=== PATIENT | female | born 1940 | race Caucasian/White ===

== ENCOUNTER → 2016-11-14 | Outpatient (CLI) | payer MEDICARE, OTHER ==
[~2016-11-14] MED LIST: AGGR20025 PO; AMLO5 PO; ASPI81TA82 PO; ATAC32TA PO; CEFU1TAB43 PO; DILT60TA PO; EZET10 PO; FURO1TAB93 PO; Hydrocodone/Acetaminophen PO; LUMI0.01 EACH EYE; MULT400T PO; POTA-243 PO; SYNT175T PO; TYLE500T PO; VITA100L SUCK-ON; Z.0.WALKERFRONT
[2016-11-14 10:56] LABS: BLOOD GAS BASE EXCESS 3.5 mmol/L (-2-2); BLOOD GAS CARBOXYHEMOGLOBIN 1.6 % (0-4); BLOOD GAS HCO3 27 mmol/L (22-26); BLOOD GAS METHEMOGLOBIN 1.2 % (0-2); BLOOD GAS O2 HGB SATURATION 93 % (90-100); BLOOD GAS OXYGEN CONTENT 15.8 Vol % (12.0-20.0); BLOOD GAS PCO2 41 mmHg (38-42); BLOOD GAS PO2 79 mmHg (61-120); TEMP CORR TO 98.6
[2016-11-14 10:57] LABS: CRITICAL VALUE NO; DRAW SITE RT RADIAL; FIO2 21 %; NUMBER OF ARTERIAL PUNCTURES 1; STAT NO; ULNAR PULSE PRESENT
--- NOTE | 2016-11-19 09:42 | RSPPFT ---
DATE OF PROCEDURE: 11/14/16 COMMENTS: Spirometry with FVC of 2.1 predicted 2.7, FEV1 of 1.5 predicted 1.9, FEV1/FVC ratio 69% predicted 80%. RV is increased to 3.0 predicted 2.4 implying air trapping. DLCO is 77% of predicted. IMPRESSION: On the basis of the above, patient has an obstructive lung defect with air trapping. There is no response to acutely inhaled bronchodilator except at the level of the "small airways".
== END ==
LOC: HRSP 09:40
PROVIDERS: ATTEND Internal Medicine Pulmonary Disease
DX: R06.02 Shortness of breath (principal)
CPT/HCPCS: 36600; 82805; 94060; 94620; 94726; 94729

== ENCOUNTER → 2017-05-22 | Outpatient (CLI) | payer MEDICARE, OTHER ==
[~2017-05-22] MED LIST changes: +AMLO5TAB2 PO; +CAND32TA10 PO; +FURO1TAB62 PO; +MAPA500T13 PO; +METO25TA3 PO; +POTA10TA2 PO; +XARE20TA PO
[2017-05-22 11:45] LABS: BILIRUBIN, URINE NEG (NEG); BLOOD, URINE NEG (NEG); GLUCOSE,URINE NEG (NEG); KETONE, URINE NEG (NEG); MUCUS URINE FEW /lpf (OCC); NITRITE,URINE NEG (NEG); SQUAMOUS EPITHELIAL CELL URINE <1 /hpf (0-5); URINE COLOR YELLOW (YELLW/STRAW); URINE LEUKOCYTE ESTERASE NEG (NEG)
--- NOTE | 2017-05-22 11:49 | RADRPT ---
EXAM DATE/TIME: 05/22/2017 11:18 [facility] COMPARISON: CHEST PA & LAT, September 28, 2015, 11:27. INDICATIONS : Evaluate for pneumonia, pneumothorax and communicable diseases. Pre-op hip surgery MEDICAL HISTORY : Cardiovascular disease. Stroke. SURGICAL HISTORY : CABG. Appendectomy. ENCOUNTER: Initial ACUITY: 1 day PAIN SCORE: 0/10 LOCATION: chest FINDINGS: PA and lateral views of the chest demonstrate the lungs to be symmetrically aerated without evidence of mass, infiltrate or effusion. The cardiomediastinal contours are unremarkable. Osseous structure s are intact. CONCLUSION: Normal examination. 4 intact sternal wires. Asif Odom MD on May 22, 2017 at 11:47 Board Certified Radiologist. This report was verified electronically.
[2017-05-22 11:50] LABS: AUTOMATED NEUTROPHIL # 3.8 TH/MM3 (1.8-7.7); BASOPHIL # 0.1 TH/MM3 (0-0.2); BASOPHIL % 0.9 % (0.0-2.0); EOSINOPHIL # 0.3 TH/MM3 (0-0.4); EOSINOPHIL % 5.4 % (0.0-4.0); MEAN CELL VOLUME 88.7 FL (80.0-100.0); MEAN CORPUSCULAR HEMOGLOBIN 29.5 PG (27.0-34.0); MEAN CORPUSCULAR HGB CONC 33.3 % (32.0-36.0); MEAN PLATELET VOLUME 9.9 FL (7.0-11.0); MONO % 6.6 % (0.0-8.0); MONOCYTE # 0.4 TH/MM3 (0-0.9); NEUT % 69.1 % (16.0-70.0); PLATELET COUNT 210 TH/MM3 (150-450); RED CELL DISTRIBUTION WIDTH 14.8 % (11.6-17.2); WHITE BLOOD COUNT 5.6 TH/MM3 (4.0-11.0)
[2017-05-22 12:10] LABS: BICARBONATE 30.7 MEQ/L (21.0-32.0); CALCIUM 8.6 MG/DL (8.5-10.1); CREATININE 0.58 MG/DL (0.50-1.00)
[2017-05-22 12:11] LABS: INTERNATIONAL NORMALIZED RATIO 1.1 RATIO; PROTHROMBIN TIME - PATIENT 11.6 SEC (9.8-11.6)
== END ==
LOC: CPRE 10:02
PROVIDERS: ATTEND Orthopaedic Surgery
DX: Z01.812 Encounter for preprocedural laboratory examination (principal); Z01.811 Encounter for preprocedural respiratory examination; M16.11 Unilateral primary osteoarthritis, right hip; Z79.01 Long term (current) use of anticoagulants
CPT/HCPCS: 36415; 71046; 80048; 81001; 85025; 85610

== ENCOUNTER 2017-06-04 05:21 | Inpatient (IN) | payer MEDICARE, OTHER ==
--- NOTE | 2017-05-26 13:05 | MH ---
cc: SAMANTHAVELMADELIA CODYAN DATE OF ADMISSION: 06/04/2017 ADMISSION DIAGNOSIS Osteoarthritis of the right hip, pain right hip. HISTORY OF PRESENT ILLNESS The patient is a 76-year-old white female who has experienced at least a 2-year history of pain involving her right hip area. She had been admitted to the hospital in May of 2015 for history of osteoarthritis of her left hip and at that time underwent a left total hip arthroplasty which was completed in an uncomplicated manner. The patient tolerated her operative procedure well and her postoperative course was unremarkable thereafter. She had noted similar discomfort about the right hip at that time but initially found it to be tolerable. Unfortunately, with the passage of time her symptoms became more pronounced and in February of this past year she returned to the office for further disposition. Her x-ray studies did reveal obvious degenerative changes with narrowing of the joint space and hypertrophic reaction about the inferior margin of the femoral head. Findings and treatment options were reviewed with the patient at that time. She elected to undergo a fluoroscopic injection of her right hip which did afford her several weeks of significant pain relief until her symptoms gradually began to recur. She had been taking Tylenol for pain management and was having ongoing difficulty with regards to her daily routine as related to weightbearing activities. Findings and treatment options were reviewed with the patient, the pros and cons of continuing with conservative management versus operative intervention that would involve total hip arthroplasty were outlined. Emphasis was made regarding the fact that the decision to proceed with surgery would be left entirely to the patient's discretion. She considered her options in this regard and returned to the office more recently indicating that her symptoms had progressed to a point in time where she was ready to proceed with surgery as previously discussed. In compliance with her wishes she has currently been scheduled for admission in order that the above be accomplished. PAST MEDICAL HISTORY/HOSPITALIZATIONS/SURGERIES In addition to her left total hip arthroplasty have included: 1. Bilateral total knee arthroplasties. 2. 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 3. Abdominal hysterectomy. 4. Bilateral cataract excision. 5. Complete thyroidectomy. 6. Appendectomy. 7. Medical management for a GI bleed. 8. More recently she was admitted for stroke evaluation with a electrophysiologic study and subsequently 9. Underwent cardiac ablation for history of atrial fibrillation. MEDICAL ILLNESSES 1. Hypertension. 2. Hypothyroidism. 3. Elevated cholesterol. 4. Glaucoma. MEDICATIONS Current medications: 1. Candesartan 32 mg daily. 2. Metoprolol 25 mg daily. 3. Amlodipine 5 mg daily. 4. Synthroid 0.175 mg daily. 5. Xarelto 20 mg daily. 6. Zetia 10 mg at bedtime. 7. Lasix 20 mg daily. 8. Potassium chloride 10 mEq daily. 9. Lumigan eyedrops 1 drop to each eye at bedtime. 10. She takes Tylenol on a p.r.n. basis. ALLERGIES The patient indicates a drug allergy to DEMEROL AND TRAMADOL WHICH HAVE BEEN ASSOCIATED WITH NAUSEA AND VOMITING. NORVASC APPARENTLY HAS CAUSED SHORTNESS OF BREATH. REVIEW OF SYSTEMS She does wear glasses. No headache, seizure or syncope. No sinus congestion or epistaxis. Auditory acuity intact. No tinnitus. No bleeding gums or dysphagia. Complete upper and partial lower dentures. No cough, shortness of breath, upper respiratory infection, pneumonia or tuberculosis. No angina. She is medically managed for hypertension and is status post cardiac ablation for atrial fibrillation. Appetite is good. Bowel movement is regular. No hepatitis, gallbladder disease, ulcers or hemorrhoids. No urinary tract infection. No kidney stones. She has had a fracture of the right foot and right humerus treated nonoperatively. No psychiatric illness. Remaining review of systems is unremarkable and noncontributory. FAMILY HISTORY The patient has been a for at least 34 years, having at 57 years of age with a history of cirrhosis. One daughter noted to be in good health. Family history is positive for hypertension, diabetes, congestive heart failure, bladder and colon cancer and stroke. SOCIAL HISTORY The patient completed 2 years of college education. 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 Denies active use of tobacco for almost 27 years, having been less than a one-pack per day smoker for 20 years in the past. Ethanol consumption socially. PHYSICAL EXAMINATION Height 5 feet 6 inches, weight 237 pounds. GENERAL: An alert, oriented and responsive 76-year-old white female who sits quietly upon the examination table with no apparent distress. HEENT: Pupils are equally round and reactive to light. Extraocular movements full. Sclerae clear. External nares clear. External auditory canals clear. Edentulous in maxillary distribution. Semi edentulous in the mandibular distribution. Mucous membranes pink and moist. Pharynx clear. NECK: Supple. Active range of motion without associated pain. Carotid pulse palpable bilaterally. Trachea midline. Thyroid without enlargement. LUNGS: Clear to auscultation and percussion. No CVA tenderness. No discomfort throughout the dorsal lumbar spine. HEART: Regular rhythm. No murmur or gallop. ABDOMEN: Abdomen is soft, nontender. Bowel sounds present. PELVIC: Per primary care physician. EXTREMITIES: Right hip, there is no localizing tenderness to palpation. There is limited and guarded mobility of the hip joint especially involving internal rotation with pain at the extreme of motion. No associated crepitation or sensation of instability. Straight-leg raising unremarkable at 80 degrees. Reji sign is positive. Distal sensory grossly intact. Mild antalgic gait. NEUROLOGIC: Cranial nerves II-XII grossly intact. IMPRESSION Osteoarthritis right hip, pain right hip. PLAN Right total hip arthroplasty. The nature of the planned surgical procedure, the potential complications and risks associated, the expectations of surgery and the consent form were thoroughly reviewed with the patient prior to her admission to the hospital. Lacie has indicated her full understanding regarding all of the above and given consent to proceed with treatment as outlined. Medical evaluation and clearance for surgery will be completed by her primary care physician, Dr. Jennings, cardiology clearance per Dr. Cox. Kelton De La Paz MD NBS/TLL /12:25 PM /12:40 PM
[~2017-06-04] VITALS: Ht 167.6 cm; Wt 107.9 kg
[~2017-06-04 05:21] MED LIST changes: -AGGR20025 PO; -AMLO5 PO; -ASPI81TA82 PO; -ATAC32TA PO; -CEFU1TAB43 PO; -DILT60TA PO; -FURO1TAB93 PO; -Hydrocodone/Acetaminophen PO; -MULT400T PO; -POTA-243 PO; -TYLE500T PO; -VITA100L SUCK-ON; -Z.0.WALKERFRONT
[2017-06-04] MEDS ORDERED: METOPROLOL TARTRATE 25 MG TAB PO PRN (06:00)
[2017-06-04] MEDS ORDERED: POVIDONE IODINE 5% (ANTISEPSIS KIT) 4 APPLICATIONS EACH NARE PRN (06:00)
[2017-06-04] MEDS ORDERED: CHLORHEXIDINE GLUCONATE 2 % 1 PACK (2 CLOTHS) TOPICAL PRN (06:00)
[2017-06-04] MEDS ORDERED: LACTATED RINGER'S 1000 ML IV PRN (06:00)
[2017-06-04] MEDS ORDERED: SODIUM CHLORID 0.9% 500 ML IV PRN (06:00)
[2017-06-04] MEDS ORDERED: ceFAZolin INJ 1,000 MG VIAL ONE (06:00)
[2017-06-04] MEDS ORDERED: ceFAZolin 2 GM PREMIX 50 ML IV SCH (06:00)
[2017-06-04] MEDS ORDERED: POVIDONE IODINE 7.5% SCRUB 118 ML BOTTLE TOPICAL SCH (06:00)
[2017-06-04] MEDS ORDERED: TRANEXAMIC ACID 1 GM PRIOR TO PROCEDURE IV SCH ×2 (07:00)
[2017-06-04] MEDS ORDERED: *morphine SULFATE 10 MG/ML PERIprocedure ONLY ONE (09:59)
[2017-06-04] MEDS ORDERED: HYDR-3516 PO (09:59)
[2017-06-04] MEDS ORDERED: ACETAMINOPHEN/HYDROcodone 325 MG/5 MG TAB PO PRN ×2 (10:00)
[2017-06-04] MEDS ORDERED: TRANEXAMIC ACID INJ 1,000 MG in SODIUM CHLORIDE 0.9% INJ 100 ML IV SCH (10:00)
[2017-06-04] MEDS ORDERED: Post-op Orders (for Pharmacy) XX ONE (10:00)
[2017-06-04] MEDS ORDERED: DOCUSATE SODIUM 100 MG CAP PO PRN (10:00)
[2017-06-04] MEDS ORDERED: MORPHINE SULFATE 30 MG/30 ML PCA IV SCH (10:00)
[2017-06-04] MEDS ORDERED: NALOXONE HCL 0.4 MG/ML AMP IV PUSH PRN (10:00)
[2017-06-04] MEDS ORDERED: ZOLPIDEM TARTRATE 5 MG TAB PO PRN (10:00)
[2017-06-04] MEDS ORDERED: ONDANSETRON HCL 4 MG/2 ML VIAL IVP PRN (10:00)
[2017-06-04] MEDS ORDERED: TRANEXAMIC ACID 1 GM POST-OP IV SCH ×2 (10:00)
[2017-06-04] MEDS ORDERED: MISCELLANEOUS PHARMACY INFORMATION XX ONE (10:00)
--- NOTE | 2017-06-04 10:01 | HHI.FF ---
Face to Face Verification Diagnosis: (1) Degenerative joint disease (DJD) of hip Physical Therapy Gait training Hip: Total hip, Protocol: Right, Abduction pillow while in bed Right LE Weight Bearing: WB as tolerated Right LE Range of Motion: Active ROM Nursing Dressing Changes: Daily dressing change I have seen patient Lacie Emery on 06/04/17. My clinical findings support the need for the requested home health care services because: Limited ability to care for self High risk of falls I certify that my clinical findings support that this patient is homebound because: Post-op weakness Unsteady gait/balance Unsafe to leave home unassisted Denny De La Paz MD Jun 04, 2017 10:01
[2017-06-04] MEDS ORDERED: COMMODE 3-IN-11 MIS (10:05)
[2017-06-04] MEDS ORDERED: WALKER WHEELS/F1 MIS (10:05)
[2017-06-04] MEDS ORDERED: *PROMETHAZINE 25 MG/ML VIAL PERIprocedural use ONLY ONE (10:08)
[2017-06-04] MEDS: DEXT 5%-NACL 0.45% 1000 ML INJ 1,000 ML IV SCH ×2 (10:36→19:52)
--- NOTE | 2017-06-04 10:38 | RADRPT ---
EXAM DATE/TIME: 06/04/2017 10:21 [facility] COMPARISON: No previous studies available for comparison. INDICATIONS : Post op right total hip replacement. MEDICAL HISTORY : Cardiovascular disease. Stroke. SURGICAL HISTORY : CABG. Appendectomy. ENCOUNTER: Initial ACUITY: 1 day PAIN SCORE: 6/10 LOCATION: Right Hip FINDINGS: Single AP view of the right hip demonstrating total rib right hip arthroplasty. The arthroplasty comp onents are in gross anatomic alignment. No sidney-hardware lucency or significant acute fracture. CONCLUSION: 1. Right hip arthroplasty in gross anatomic alignment without acute fracture. Edwin Zacarias MD on June 04, 2017 at 10:34 Board Certified Radiologist. This report was verified electronically.
[2017-06-04] MEDS ORDERED: LIDOCAINE HCL 1% PF 5 ML AMPULE OTHER ONE (12:00)
[2017-06-04] MEDS ORDERED: GLYCOPYRROLATE 1 MG/5 ML SYRINGE IV PUSH ONE (12:00)
[2017-06-04] MEDS ORDERED: NEOSTIGMINE 5 MG/5 ML SYRINGE IV PUSH ONE (12:00)
[2017-06-04] MEDS ORDERED: ROCURONIUM INJ 50 MG/5 ML SYRINGE IV PUSH ONE (12:00)
[2017-06-04] MEDS ORDERED: ePHEDrine/NS 25 MG/5 ML SYRINGE IV ONE (12:00)
[2017-06-04] MEDS ORDERED: PROPOFOL 200 MG/20 ML AMP IV ONE (12:00)
[2017-06-04] MEDS ORDERED: *ONDANSETRON 4 MG VIAL PERIprocedural Use ONLY ONE (13:44)
[2017-06-04] MEDS: PCA - TOTAL MG MORPHINE DELIVERED PER SHIFT SCH ×2 (14:00→19:58)
[2017-06-04 16:00] VITALS: BP 96/52; PULSE 74; RESP 17; TEMP 95.3; O2SAT 94
--- NOTE | 2017-06-04 19:50 | PD.CONS ---
[facility] Request[facility] By Dr De La Paz Reason for Consult Medical management. Primary Care Physician Non-Staff Diagnoses: History of Present Illness This is a 76-year-old female with history of atrial fibrillation status post ablation, osteoarthritis, hypertension, hypothyroidism, hyperlipidemia and glaucoma. The patient presents with a long-standing history of pain in the right hip. The patient had a left hip arthroplasty in 2016. However as per orthopedic surgery accounts the patient had increased pain and return to see the orthopedic surgeon. The patient had an x-ray as an outpatient which revealed obvious degenerative changes with narrowing of the joint space. At that time the patient did undergo a fluoroscopic injection of her right hip which managed to keep the patient under control for several weeks until the symptoms began to recur. The patient was admitted for an elective right total hip arthroplasty. I am being consulted to manage the patient's medical issues. The patient denies chest pain, shortness of breath, abdominal pain, nausea, vomiting, diarrhea, dysuria. Review of Systems As per history of present illness, other systems reviewed by me and negative. Past Family Social History Allergies: Coded Allergies: tramadol (Verified Allergy, Severe, nausea and vomiting, 05/22/17) meperidine (Verified Adverse Reaction, Severe, NAUSEA/VOMITING, 05/22/17) Past Medical History 1. Hypertension. 2. Hypothyroidism. 3. Elevated cholesterol. 4. Glaucoma 5. GI bleed. 6. Atrial fibrillation status post cardiac ablation. 7. History of cardiac myxoma. Past Surgical History 1. Bilateral total knee arthroplasties. 2. 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 3. Abdominal hysterectomy. 4. Bilateral cataract excision. 5. Complete thyroidectomy. 6. Appendectomy. 7. Underwent cardiac ablation for history of atrial fibrillation. Reported Medications Reported Meds & Active Scripts Active Commode 3-in-1 (Device) 1 Mis Mis Ea .XX DIRECTED Walker with Front Wheels (Device) 1 Mis Mis Ea .XX DIRECTED use as directed Hydrocodone-Acetamin 5-325 mg (Hydrocodone/Acetaminophen) 5 Mg-325 Mg Tablet 1 Tab PO Q4H PRN 60 Days Reported Mapap Extra Strength (Acetaminophen) 500 Mg Tab 500 Mg PO Q4-6H PRN Lumigan Opth Drops (Bimatoprost) 0.01% Soln 1 Drop EACH EYE HS Potassium Chloride ER (Potassium Chloride) 10 Meq Tab 10 Meq PO DAILY Lasix (Furosemide) 20 Mg Tab 20 Mg PO DAILY Zetia (Ezetimibe) 10 Mg Tab 10 Mg PO HS Xarelto (Rivaroxaban) 20 Mg Tab 20 Mg PO HS Synthroid (Levothyroxine Sodium) 175 Mcg Tab 175 Mcg PO DAILY Amlodipine (Amlodipine Besylate) 5 Mg Tab 5 Mg PO HS Metoprolol Tartrate 25 Mg Tab 25 Mg PO HS Candesartan (Candesartan Cilexetil) 32 Mg Tab 32 Mg PO DAILY Active Ordered Medications Current Medications Medications (Trade) Dose Ordered Sig/Deisy Route Start Time Stop Time Status Last Admin Lactated Ringer's 1,000 ml @ 30 mls/hr Q24H PRN IV 06/04/17 06:00 06/07/17 05:59 06/04/17 06:00 Sodium Chloride 500 ml @ 30 mls/hr [id number] PRN IV 06/04/17 06:00 06/07/17 05:59 (Lopressor) 25 mg FLIGHT CREW SCHEDULER PRN PO 06/04/17 06:00 06/07/17 05:59 (Betadine 5% Antisepsis Kit) 1 applic FLIGHT CREW SCHEDULER PRN EACH NARE 06/04/17 06:00 06/07/17 05:59 06/04/17 06:15 (Chlorhexidine 2% Cloth) 3 pack FLIGHT CREW SCHEDULER PRN TOPICAL 06/04/17 06:00 06/07/17 05:59 06/04/17 05:45 (Betadine 7.5% Scrub) 1 applic ONCE TOPICAL 06/04/17 06:00 06/07/17 05:59 06/04/17 06:00 Cefazolin Sodium/ Dextrose 50 ml @ 100 mls/hr FLIGHT CREW SCHEDULER IV 06/04/17 06:00 06/05/17 05:59 06/04/17 06:30 Dextrose/Sodium Chloride 1,000 ml @ 125 mls/hr Q8H IV 06/04/17 11:00 06/04/17 10:36 Cefazolin Sodium 1000 mg/Sodium Chloride 100 ml @ 200 mls/hr Q6H IV 06/04/17 14:00 06/05/17 02:29 06/04/17 13:30 (Xarelto) 10 mg Q24H PO 06/05/17 09:00 (Beverly 5-325 Mg) 1 tab Q4H PRN PO 06/04/17 10:00 (Beverly 5-325 Mg) 2 tab Q4H PRN PO 06/04/17 10:00 (Tylenol) 650 mg Q6H PRN PO 06/04/17 10:00 (Zofran Inj) 4 mg Q6H PRN IVP 06/04/17 10:00 (Colace) 100 mg BID PRN PO 06/04/17 10:00 (Ambien) 5 mg HS PRN PO 06/04/17 10:00 (Narcan Inj) 0.4 mg UNSCH PRN IV PUSH 06/04/17 10:00 (Morphine 1 Mg/ ml [employer]) 30 mg UNSCH IV 06/04/17 10:00 06/04/17 10:34 [employer] Dosage Infused (Pha) 1 Q8HR .XX 06/04/17 14:00 Family History Family history positive for hypertension, diabetes, congestive heart failure, bladder and colon cancer as well as stroke. Social History Denies tobacco use for almost 27 years. Social alcohol use. Denies illicit drug use. Physical Exam Vital Signs Vital Signs Date Time Temp Pulse Resp B/P (MAP) Pulse Ox O2 Delivery O2 Flow Rate FiO2 06/04/17 16:00 95.3 74 17 96/52 (67) 94 06/04/17 13:00 97.6 76 16 119/68 (85) 96 Nasal Cannula 2 06/04/17 12:00 72 13 134/63 (86) 95 Nasal Cannula 2 06/04/17 11:00 68 14 145/69 (94) 100 Nasal Cannula 2 06/04/17 10:34 15 06/04/17 10:30 66 13 137/74 (95) 93 Nasal Cannula 2 06/04/17 10:15 66 14 149/61 (90) 96 Nasal Cannula 2 06/04/17 10:00 71 15 161/69 (99) 98 Nasal Cannula 2 06/04/17 09:54 97.8 71 19 140/67 (91) 98 Nasal Cannula 2 06/04/17 06:04 97.8 68 16 203/96 (131) 96 Physical Exam GENERAL: This is a well-nourished, well-developed patient, in no apparent distress. SKIN: No rashes, ecchymoses or lesions. Cool and dry. HEAD: Atraumatic. Normocephalic. No temporal or scalp tenderness. EYES: Pupils equal round and reactive. Extraocular motions intact. No scleral icterus. No injection or drainage. ENT: Nose without bleeding, purulent drainage or septal hematoma. Throat without erythema, tonsillar hypertrophy or exudate. Uvula midline. Airway patent. NECK: Trachea midline. No JVD or lymphadenopathy. Supple, nontender, no meningeal signs. CARDIOVASCULAR: Regular rate and rhythm without murmurs, gallops, or rubs. RESPIRATORY: Clear to auscultation. Breath sounds equal bilaterally. No wheezes , rales, or rhonchi. GASTROINTESTINAL: Abdomen soft, non-tender, nondistended. No hepato-splenomegaly , or palpable masses. No guarding. MUSCULOSKELETAL: Extremities without clubbing, cyanosis, or edema. No joint tenderness, effusion, or edema noted. No calf tenderness. Negative Homans sign bilaterally. NEUROLOGICAL: Awake and alert. Cranial nerves II through XII intact. Motor and sensory grossly within normal limits. Five out of 5 muscle strength in all muscle groups. Normal speech. Imaging Last Impressions Hip X-Ray 06/04/17 0954 Signed Impressions: Service Date/Time: Sunday, June 04, 2017 10:21 - CONCLUSION: 1. Right hip arthroplasty in gross anatomic alignment without acute fracture. Edwin Zacarias MD Assessment and Plan Problem List: (1) Status post total knee replacement, right ICD Code: Z96.651 - Presence of right artificial knee joint Status: Acute Plan: Management as per orthopedic surgery. A control as per orthopedic surgery, the patient currently on a morphine [employer]. (2) Hypertension ICD Code: I10 - Essential (primary) hypertension Status: Chronic Plan: Blood pressure seems to be low at this moment. Blood pressure 96/52. I will give a bolus of 500 ML's of normal saline. (3) Hypothyroidism ICD Code: E03.9 - Hypothyroidism, unspecified Status: Chronic Plan: Continue levothyroxine. (4) History of atrial fibrillation ICD Code: Z86.79 - Personal history of other diseases of the circulatory system Status: Chronic Plan: Post ablation. Continue Xarelto as per orthopedic surgery recommendations. (5) Hyperlipidemia ICD Code: E78.5 - Hyperlipidemia, unspecified Status: Chronic Plan: Hold statin for now. (6) Hx TIA/stroke w/o resid ICD Code: Z86.73 - Personal history of transient ischemic attack (TIA), and cerebral infarction without residual deficits Status: Acute Plan: On Xarelto, continue as per orthopedic surgery. (7) Glaucoma ICD Code: H40.9 - Unspecified glaucoma Plan: Continue Lumigan. Problem Qualifiers (1) Hypertension: Qualified Codes: I10 - Essential (primary) hypertension (2) Hyperlipidemia: Qualified Codes: E78.5 - Hyperlipidemia, unspecified (3) Glaucoma: Qualified Codes: H40.9 - Unspecified glaucoma Leon Stevenson MD Jun 04, 2017 19:50
[2017-06-04 20:05] VITALS: BP 105/58; PULSE 76; RESP 18; TEMP 97.1; O2SAT 96
[2017-06-04] MEDS: LATANOPROST 0.005% OPHT SOLN 2.5 ML BTL EACH EYE SCH (21:58)
[2017-06-05 00:21] VITALS: BP 110/64; PULSE 82; RESP 17; TEMP 97.2; O2SAT 97
--- NOTE | 2017-06-05 00:41 | MP ---
cc: KELTON DE LA PAZ M.D. DATE OF SURGERY: 06/04/2017 PREOPERATIVE DIAGNOSIS: Osteoarthritis of the right hip, pain right hip. POSTOPERATIVE DIAGNOSIS: Osteoarthritis of the right hip, pain right hip. PROCEDURE: Right total hip arthroplasty. SURGEON: Kelton De La Paz M.D. ANESTHESIA: General endotracheal anesthesia INDICATIONS: A 76-year-old white female with a 2-year history of right hip pain. She had been admitted to the hospital in May 2015 for history of osteoarthritis of her left hip and at that time underwent a left total hip arthroplasty which was completed in an uncomplicated manner. The patient tolerated her operative procedure well and her postoperative course was unremarkable thereafter. At that time she had appreciated similar discomfort of her right hip but was able to tolerate her symptoms at that time. Unfortunately with the passage of time her symptoms became more pronounced and in February of this year she returned to the office for further disposition. Her x-ray studies did reveal obvious degenerative changes with narrowing of the joint space and hypertrophic bony reaction, especially involving the inferior margin of the femoral head. Findings and treatment options were reviewed at that time. The patient did undergo a fluoroscopic injection of her right hip which afforded her several weeks of significant pain relief until her symptoms gradually began to recur. She had been taking Tylenol for pain management and was having ongoing difficulty with regards to her daily routine as related to weightbearing activities. She returned to the office in more recent follow-up and at that time findings and treatment options were reviewed. The pros and cons of continuing with conservative management versus operative intervention that would involve a total hip arthroplasty were outlined. Emphasis was made regarding the fact that the decision to proceed with surgery would be left entirely to the patient's discretion. The patient considered her options in this regard and returned to the office thereafter indicating that her symptoms had progressed to a point in time where she was ready to proceed with surgery as had been discussed, and in compliance with her wishes she was scheduled for admission at this time in order that the above be accomplished. FORMAT Following induction of satisfactory general anesthesia by endotracheal intubation as completed per the Department of Anesthesia, the patient was positioned upon the operating table in a left lateral decubitus fashion. The right hip and lower extremity proper were isolated with a U drape thereafter being prepped with Betadine solution and draped into a sterile field in the routine manner. Prior to initiation of the actual procedure the standard time-out protocol was completed. All parameters were appropriately addressed and confirmed by operating room personnel. A standard posterolateral approach to the hip was initiated through a sharp skin incision and developed to underlying subcutaneous tissue with hemostasis maintained by electrocautery. By deepening dissection through abundant adipose tissue, the underlying gluteus musculature was exposed and thereafter sharply incised to the limits of the incision. The underlying gluteus fibers were bluntly divided and progressive dissection facilitated exposure of the short external rotators structures. The piriformis tendon was utilized in anatomical landmark and division of these structures was completed in a superior to inferior orientation and reflected medially exposing the posterior capsule. The sciatic nerve was protected. An L-shaped capsulotomy was accomplished to which a posterior dislocation of the femoral head was completed. Examination revealed significant degenerative changes throughout the articular surface. The femoral template was positioned for alignment orientation. The neck was scored and thereafter divided with power saw. The amputated segment being passed to the back table as surgical specimen. Attention was initially directed to the proximal femur. Cancellus bone was harvested. The tapered reamer was inserted for alignment orientation and thereafter sequential rasping and broaching was accomplished from 7 through 10 mm with the calcar andria being utilized at the 10 mm stage. The 10 mm stem was determined to be a favorable fit. The trial component being removed, attention was redirected to the acetabulum. The labrum and reactive soft tissue were sharply excised. Progressive reaming was accomplished from 46 through 52 millimeters. The 52 trial shell was positioned and determined to be satisfactory. The wound was copiously irrigated with pulsating antibiotic solution. Hemostasis maintained by electrocautery. Thereafter a 52 mm ring lock [place] Head Hip System acetabular shell was firmly seated in approximately 45 degrees inclination to the horizontal in slight anteversion. A single 25 mm 6.5 cancellous screw was inserted superiorly to augment fixation. The permanent high wall acetabular liner was affixed to the acetabular shell. The size 10 femoral broach was repositioned and a trial reduction followed utilizing a 36 mm monitor head with -3 mm neck length adapter. The hip readily reduced and was carried through a passive range of motion. Stability demonstrated at 90 degrees flexion and 45 degrees internal rotation. An open dislocation was completed, the trial femoral components being removed, the canal was thoroughly irrigated and dried and thereafter the permanent size 10 Echo Bimetric Hip System, standard femoral stem was firmly seated to which a 36 mm ceramic head with -3 mm neck length adapter was attached. An open reduction completed and repeat range of motion again noted stability as previously described. Final irrigation was accomplished with hemostasis maintained. The posterior capsule was repaired with 0 Vicryl suture. The remaining portion of the wound was closed in layers in a routine manner, skin margins being reapproximated with a running subcuticular 3-0 Vicryl suture over which Steri-Strips were applied. Xeroform gauze and a bulky dry sterile dressing were placed. The patient was repositioned into a supine orientation over an abduction splint was attached. Anesthesia was discontinued. She was thereafter transferred to a hospital bed and returned to the recovery room in satisfactory condition having tolerated her operative procedure well. Estimated blood loss approximately 600 cc as determined per anesthesia. All implants were of the [employer] Registered Route Associate. Kelton De La Paz MD [facility] /10:08 AM /12:22 AM
[2017-06-05] MEDS: PCA - TOTAL MG MORPHINE DELIVERED PER SHIFT SCH (02:38)
[2017-06-05] MEDS: DEXT 5%-NACL 0.45% 1000 ML INJ 1,000 ML IV SCH ×3 (02:38→19:00)
[2017-06-05 03:55] VITALS: BP 99/58; PULSE 81; RESP 18; TEMP 96.7; O2SAT 97
--- NOTE | 2017-06-05 07:40 | PD.ORT.PN ---
Subjective Post Op Day #: 1 Subjective Remarks She is doing well. She has minimal complaints. She does not like the abduction pillow. She anticipates going home with home health care. Distance Walked 4 small steps with PT. Objective Vitals Vital Signs Date Time Temp Pulse Resp B/P (MAP) Pulse Ox O2 Delivery O2 Flow Rate FiO2 06/05/17 03:55 96.7 81 18 99/58 (72) 97 06/05/17 00:21 97.2 82 17 110/64 (79) 97 06/04/17 20:05 97.1 76 18 105/58 (74) 96 06/04/17 19:58 18 06/04/17 16:00 95.3 74 17 96/52 (67) 94 06/04/17 14:00 16 06/04/17 13:00 97.6 76 16 119/68 (85) 96 Nasal Cannula 2 06/04/17 12:00 72 13 134/63 (86) 95 Nasal Cannula 2 06/04/17 11:00 68 14 145/69 (94) 100 Nasal Cannula 2 06/04/17 10:34 15 06/04/17 10:30 66 13 137/74 (95) 93 Nasal Cannula 2 06/04/17 10:15 66 14 149/61 (90) 96 Nasal Cannula 2 06/04/17 10:00 71 15 161/69 (99) 98 Nasal Cannula 2 06/04/17 09:54 97.8 71 19 140/67 (91) 98 Nasal Cannula 2 I/O 06/04/17 06/04/17 06/04/17 06/05/17 06/05/17 06/05/17 07:00 15:00 23:00 07:00 15:00 23:00 Intake Total 2082 ml 360 ml 580 ml Output Total 848 ml Balance 1234 ml 360 ml 580 ml Intake Oral 20 ml 360 ml 480 ml IV Total 262 ml 100 ml Other 1800 ml Output Urine Total 248 ml Estimated Blood Loss 600 ml # Voids 2 2 1 # Bowel Movements 1 0 0 Imaging Last 24 hours Impressions Hip X-Ray 06/04/17 0954 Signed Impressions: Service Date/Time: Sunday, June 04, 2017 10:21 - CONCLUSION: 1. Right hip arthroplasty in gross anatomic alignment without acute fracture. Edwin Zacarias MD Objective Remarks She is resting comfortably, supine in bed. An abduction pillow is in place. The dressing is dry and intact. The neurovascular status is intact. Assessment & Plan Ortho Post Op Day #: 1 Problem List: (1) Status post total hip replacement, right ICD Codes: Z96.641 - Presence of right artificial hip joint Plan: Continue postop care and PT. Assessment and Plan Condition: Good. Orthopedically stable. DVT prophylaxis: aspirin, sequentials. Discharge plans: Home with home health care, probably tomorrow. Follow-up care is under the direction of Dr. Denny De La Paz. Dilia Ceron MD ([place]) Jun 05, 2017 07:40
[2017-06-05 07:56] VITALS: BP 108/65; PULSE 86; RESP 17; TEMP 96.5; O2SAT 98
[2017-06-05 07:58] LABS: HEMATOCRIT 28.8 % (35.0-46.0); HEMOGLOBIN 9.7 GM/DL (11.6-15.3)
[2017-06-05] MEDS: RIVAROXABAN 10 MG TAB PO SCH (08:52)
[2017-06-05] MEDS: ACETAMINOPHEN 325 MG TAB PO PRN ×2 (09:01→19:18)
[2017-06-05 11:55] VITALS: BP 115/55; PULSE 85; RESP 17; TEMP 96.4; O2SAT 96
--- NOTE | 2017-06-05 14:30 | HHI.PR ---
Subjective Remarks Patient became hypotensive again during class. She was lightheaded. No chest pain or SOB. Currently in bed and states she is feeling better. She attributes her symptoms to Morphine and she stopped using it. Pain is currently controlled with Tylenol. Objective Vitals Vital Signs Date Time Temp Pulse Resp B/P (MAP) Pulse Ox O2 Delivery O2 Flow Rate FiO2 06/05/17 11:55 96.4 85 17 115/55 (75) 96 06/05/17 07:56 96.5 86 17 108/65 (79) 98 06/05/17 03:55 96.7 81 18 99/58 (72) 97 06/05/17 00:21 97.2 82 17 110/64 (79) 97 06/04/17 20:05 97.1 76 18 105/58 (74) 96 06/04/17 19:58 18 06/04/17 16:00 95.3 74 17 96/52 (67) 94 I/O 06/04/17 06/04/17 06/04/17 06/05/17 06/05/17 06/05/17 06:59 14:59 22:59 06:59 14:59 22:59 Intake Total 2082 ml 360 ml 580 ml Output Total 848 ml Balance 1234 ml 360 ml 580 ml Intake Oral 20 ml 360 ml 480 ml IV Total 262 ml 100 ml Other 1800 ml Output Urine Total 248 ml Estimated Blood Loss 600 ml # Voids 2 2 1 # Bowel Movements 1 0 0 Result Diagram: 06/05/17 0725 Objective Remarks GENERAL: No acute distress CARDIOVASCULAR: Regular rate and rhythm. RESPIRATORY: No accessory muscle use. Clear to auscultation. Breath sounds equal bilaterally. GASTROINTESTINAL: Abdomen soft, non-tender, nondistended. Hepatic and splenic margins not palpable. MUSCULOSKELETAL: Right hip post op dressing intact. Neurovascularly intact distally. NEUROLOGICAL: Awake and alert. No obvious cranial nerve deficits. Motor grossly within normal limits. Five out of 5 muscle strength in the arms and legs. Normal speech. PSYCHIATRIC: Appropriate mood and affect; insight and judgment normal. A/P Problem List: (1) Status post total hip replacement, right ICD Code: Z96.641 - Presence of right artificial hip joint Plan: Management as per orthopedic surgery. Issues with Hypotension when she takes Morphine. Pain controlled today with Tylenol. 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 Hold all antihypertensives. (3) Hypotension ICD Code: I95.9 - Hypotension, unspecified Plan: 2/2 Morphine. DC Morphine. Give a bolus of 500cc NS. Continue IVF. Follow BP (4) Hypothyroidism ICD Code: E03.9 - Hypothyroidism, unspecified Status: Chronic Plan: Continue levothyroxine. (5) History of atrial fibrillation ICD Code: Z86.79 - Personal history of other diseases of the circulatory system Status: Chronic Plan: Post ablation. Continue Xarelto (6) Hyperlipidemia ICD Code: E78.5 - Hyperlipidemia, unspecified Status: Chronic Plan: Hold statin for now. (7) Hx TIA/stroke w/o resid ICD Code: Z86.73 - Personal history of transient ischemic attack (TIA), and cerebral infarction without residual deficits Status: Acute Plan: On Xarelto, continue (8) Glaucoma ICD Code: H40.9 - Unspecified glaucoma Problem Qualifiers (1) Hypertension: Qualified Codes: I10 - Essential (primary) hypertension (2) Hyperlipidemia: Qualified Codes: E78.5 - Hyperlipidemia, unspecified (3) Glaucoma: Qualified Codes: H40.9 - Unspecified glaucoma Franklyn Kolb MD Jun 05, 2017 14:30
[2017-06-05] MEDS ORDERED: SODIUM CHLORID 0.9% 500 ML INJ 500 ML IV ONE (15:45)
[2017-06-05 16:00] VITALS: BP 105/54; PULSE 86; RESP 17; TEMP 97.8; O2SAT 91
[2017-06-05] MEDS: LATANOPROST 0.005% OPHT SOLN 2.5 ML BTL EACH EYE SCH (19:19)
[2017-06-05 20:40] VITALS: BP 91/54; PULSE 102; RESP 22; TEMP 99.9; O2SAT 95
[2017-06-06 00:20] VITALS: BP 94/63; PULSE 110; RESP 20; TEMP 97.7; O2SAT 95
[2017-06-06] MEDS: DEXT 5%-NACL 0.45% 1000 ML INJ 1,000 ML IV SCH ×3 (01:24→12:26)
[2017-06-06] MEDS ORDERED: SODIUM CHLORID 0.9% 500 ML INJ 500 ML IV ONE (07:30)
--- NOTE | 2017-06-06 07:57 | PD.ORT.PN ---
Subjective Post Op Day #: 2 Subjective Remarks She is doing relatively well. She has minimal complaints related to the hip. She had an episode of hypotension yesterday when out of bed and walking. This did improve somewhat with discontinuation of the morphine sulfate and with some hydration. She is being followed by the hospitalist for this. She is now only using Tylenol as an analgesic. She still anticipates going home with home health care. Distance Walked 14 feet twice with PT. Objective Vitals Vital Signs Date Time Temp Pulse Resp B/P (MAP) Pulse Ox O2 Delivery O2 Flow Rate FiO2 06/06/17 00:20 97.7 110 20 94/63 (73) 95 06/05/17 20:40 99.9 102 22 91/54 (66) 95 06/05/17 16:00 97.8 86 17 105/54 (71) 91 06/05/17 11:55 96.4 85 17 115/55 (75) 96 06/05/17 10:10 20 06/05/17 07:56 96.5 86 17 108/65 (79) 98 I/O 06/05/17 06/05/17 06/05/17 06/06/17 06/06/17 06/06/17 07:00 15:00 23:00 07:00 15:00 23:00 Intake Total 580 ml 480 ml 980 ml 240 ml Balance 580 ml 480 ml 980 ml 240 ml Intake Oral 480 ml 480 ml 480 ml 240 ml IV Total 100 ml 500 ml # Voids 1 2 3 2 # Bowel Movements 0 0 0 0 Result Diagram: 06/05/17 0725 Imaging Last 24 hours Impressions Hip X-Ray 06/04/17 0954 Signed Impressions: Service Date/Time: Sunday, June 04, 2017 10:21 - CONCLUSION: 1. Right hip arthroplasty in gross anatomic alignment without acute fracture. Edwin Zacarias MD Objective Remarks She was resting comfortably out of bed in the chair. She was somewhat diaphoretic. The dressing is dry and intact. The neurovascular status is intact. She was assisted back to bed by nursing staff and was able to rest comfortably in the bed. Assessment & Plan Ortho Post Op Day #: 2 Problem List: (1) Status post total hip replacement, right ICD Codes: Z96.641 - Presence of right artificial hip joint Plan: Continue postop care and PT. Assessment and Plan Condition: Good. Orthopedically stable. DVT prophylaxis: aspirin, sequentials. Discharge plans: Home with home health care, probably tomorrow but possibly today. She is to be further hydrated and get therapy before a decision regarding discharge is made. Follow-up care is under the direction of Dr. Denny De La Paz. Over the weekend, Clark Quispe M.D. will be covering in the absence of myself and Dr. De La Paz. Dilia Ceron MD ([place]) Jun 06, 2017 07:57
[2017-06-06 08:00] VITALS: BP 97/62; PULSE 75; RESP 16; TEMP 97.6; O2SAT 93
[2017-06-06] MEDS: RIVAROXABAN 10 MG TAB PO SCH (08:31)
[2017-06-06] MEDS: ACETAMINOPHEN 325 MG TAB PO PRN ×2 (08:32→14:50)
[2017-06-06 12:00] VITALS: BP 116/69; PULSE 113; RESP 16; TEMP 96.7; O2SAT 95
--- NOTE | 2017-06-06 12:26 | HHI.PR ---
Subjective Remarks Patient reports he is feeling much better today. She wants to go home. No more lightheadedness. Heart rate was elevated and EKG confirmed A. fib. Objective Vitals Vital Signs Date Time Temp Pulse Resp B/P (MAP) Pulse Ox O2 Delivery O2 Flow Rate FiO2 06/06/17 08:00 97.6 75 16 97/62 (74) 93 06/06/17 00:20 97.7 110 20 94/63 (73) 95 06/05/17 20:40 99.9 102 22 91/54 (66) 95 06/05/17 16:00 97.8 86 17 105/54 (71) 91 I/O 06/05/17 06/05/17 06/05/17 06/06/17 06/06/17 06/06/17 07:00 15:00 23:00 07:00 15:00 23:00 Intake Total 580 ml 480 ml 980 ml 240 ml Balance 580 ml 480 ml 980 ml 240 ml Intake Oral 480 ml 480 ml 480 ml 240 ml IV Total 100 ml 500 ml # Voids 1 2 3 2 # Bowel Movements 0 0 0 0 Result Diagram: 06/05/17 0725 Objective Remarks GENERAL: No acute distress CARDIOVASCULAR: Rate around 90s. Irregular rhythm. RESPIRATORY: No accessory muscle use. Clear to auscultation. Breath sounds equal bilaterally. GASTROINTESTINAL: Abdomen soft, non-tender, nondistended. Hepatic and splenic margins not palpable. MUSCULOSKELETAL: Right hip post op dressing intact. Neurovascularly intact distally. NEUROLOGICAL: Awake and alert. No obvious cranial nerve deficits. Motor grossly within normal limits. Five out of 5 muscle strength in the arms and legs. Normal speech. PSYCHIATRIC: Appropriate mood and affect; insight and judgment normal. A/P Problem List: (1) Status post total hip replacement, right ICD Code: Z96.641 - Presence of right artificial hip joint Plan: Management as per orthopedic surgery. Pain control with Tylenol. PT (2) Hypertension ICD Code: I10 - Essential (primary) hypertension Status: Chronic Plan: Blood pressure initially low 2/2 Narcotics. Heart rate also intermittently uncontrolled which may contribute to hypotension. - Resume metoprolol. Advised the patient to continue to hold Lasix and amlodipine. She is to follow-up with her pay clerk and titrate antihypertensives as needed. She will call her pay clerk to get an appointment prior to discharge. (3) Hypotension ICD Code: I95.9 - Hypotension, unspecified Plan: 2/2 Morphine and uncontrolled A. fib. Dehydration contributing as well. IV fluid this morning. Blood pressure is much better. Advised patient to continue to hold amlodipine and Lasix. Outpatient follow-up with her pay clerk early next week. Recommend that she continues to check her blood pressure at home and keep a log. (4) Hypothyroidism ICD Code: E03.9 - Hypothyroidism, unspecified Status: Chronic Plan: Continue levothyroxine. (5) History of atrial fibrillation ICD Code: Z86.79 - Personal history of other diseases of the circulatory system Status: Chronic Plan: Rate intermittently uncontrolled. Continue Xarelto. Resume metoprolol (6) Hyperlipidemia ICD Code: E78.5 - Hyperlipidemia, unspecified Status: Chronic (7) Hx TIA/stroke w/o resid ICD Code: Z86.73 - Personal history of transient ischemic attack (TIA), and cerebral infarction without residual deficits Status: Acute Plan: On Xarelto, continue (8) Glaucoma ICD Code: H40.9 - Unspecified glaucoma Discharge Planning Continue to monitor this morning. If blood pressure remain normal, no further dizziness and heart rate less than 100, she may be discharged later today or tomorrow morning per orthopedics. Problem Qualifiers (1) Hypertension: Qualified Codes: I10 - Essential (primary) hypertension (2) Hyperlipidemia: Qualified Codes: E78.5 - Hyperlipidemia, unspecified (3) Glaucoma: Qualified Codes: H40.9 - Unspecified glaucoma Franklyn Kolb MD Jun 06, 2017 12:26
[2017-06-06] MEDS ORDERED: METOPROLOL TARTRATE 25 MG TAB PO SCH (12:30)
[2017-06-06] MEDS ORDERED: METO25TA3 PO (15:50)
[2017-06-06 16:00] VITALS: BP 118/69; PULSE 88; RESP 15; TEMP 96.1; O2SAT 93
--- NOTE | 2017-06-06 19:53 | EKG ---
Date Performed: 06/06/2017 Time Performed: 10:58:02 PTAGE: 76 years EKG: ATRIAL FIBRILLATION WITH RAPID VENTRICULAR RESPONSE LOW QRS VOLTAGE IN PRECORDIAL LEADS NON SPECIFIC ST & T-WAVE ABNORMALITY ABNORMAL ECG Since the prior tracing, there has been no significant change PREVIOUS TRACING : 02/20/2016 12.05 DOCTOR: Joel Sheriff Interpretating Date/Time 06/06/2017 19:51:51
== END 2017-06-06 16:35 | disposition home health service (06) | DRG 470 ==
LOC: HSDI 05:21 → N06B 14:04
PROVIDERS: ADMIT Orthopaedic Surgery; ATTEND Orthopaedic Surgery
PROC: 0SR903A Replacement of Right Hip Joint with Ceramic Synthetic Substitute, Uncemented, Open Approach (ICD-10-PCS; principal; 2017-06-04 07:00)
DX: M16.11 Unilateral primary osteoarthritis, right hip (principal); I95.9 Hypotension, unspecified; I48.91 Unspecified atrial fibrillation; E66.9 Obesity, unspecified; Z96.642 Presence of left artificial hip joint; E03.9 Hypothyroidism, unspecified; I10 Essential (primary) hypertension; H40.9 Unspecified glaucoma; E78.5 Hyperlipidemia, unspecified; Z68.38 Body mass index [BMI] 38.0-38.9, adult; Z79.01 Long term (current) use of anticoagulants; Z86.73 Personal history of transient ischemic attack (TIA), and cerebral infarction without residual deficits; Z88.5 Allergy status to narcotic agent; Z87.891 Personal history of nicotine dependence; Z96.653 Presence of artificial knee joint, bilateral
CPT/HCPCS: 73501; 85014; 85018; 86850; 86900; 86901; 88304; 88305; 88311; 93005; 94150; C1776; J0690; J2270; J2405; J2550; J2710; J3010; J7040; J7120